=== PATIENT | female | born 1995 | race Two or more races ===

== ENCOUNTER 2023-02-25 10:30 | Emergency (ER) | payer OTHER ==
[~2023-02-25] VITALS: Ht 152.4 cm; Wt 66.7 kg
[2023-02-25 13:17] LABS: HEMATOCRIT 39.7 % (36.0-45.00); MEAN CELL VOLUME 75.2 fL (80.00-100.00); MEAN CORPUSCULAR HEMOGLOBIN 24.7 pg (27.00-32.0); MEAN CORPUSCULAR HGB CONC 32.8 g/dl (32.0-36.0); PLATELET COUNT 399 K/uL (150-450); RED BLOOD COUNT 5.28 M/uL (4.00-6.00); RED CELL DISTRIBUTION WIDTH 16.8 % (11.5-14.5)
[2023-02-25 13:57] LABS: URINE APPEARANCE Clear; URINE BACTERIA 981.4 uL (0.0-1933); URINE BILIRRUBIN Negative (NEGATIVE); URINE BLOOD Negative; URINE COLOR Yellow; URINE EPITHELIAL CELLS 39.4 uL (0.0-38.8); URINE GLUCOSE Negative (NEGATIVE); URINE LEUKOCYTE Small; URINE NITRATE Negative; URINE PROTEIN Negative (NEGATIVE); URINE RBC 10.6 uL (0.0-20.8); URINE WBC 36.9 uL (0.0-23.2)
== END 2023-02-25 17:17 | disposition home or self-care (01) ==
LOC: ER 10:31
PROVIDERS: General Practice
DX: O20.9 Hemorrhage in early pregnancy, unspecified (principal); Z3A.13 13 weeks gestation of pregnancy; Z88.6 Allergy status to analgesic agent; Z88.0 Allergy status to penicillin